=== PATIENT | female | born 1970 | race Caucasian/White ===

== ENCOUNTER 2016-10-31 22:26 | Emergency (ER) | payer OTHER ==
--- NOTE | ~2016-10-31 | ER ---
PATIENT'S NAME: ANIKET KENNEY [facility] AGE: 45 Y [address] ROOM: [place] [id number] LOCATION: [facility] ADMIT DATE: 10/31/2016 ER/Outpatient Report DISCHARGE DATE: 10/31/2016 FAMILY PHYSICIAN: James Nelson MD ATTENDING PHYSICIAN: Christoph Miller Time of Arrival: 2229 hours. Time of Evaluation: 2238 hours. CHIEF COMPLAINT: Headache. HISTORY OF PRESENT ILLNESS: The patient states she has not felt well today, has had nausea, no vomiting until this evening, but with an upset stomach, she did not take any of her normal medications that she takes for her migraine headaches and is here now for treatment. She states headache became to the status of being a migraine approximately 2 hours ago. She does have photophobia. It is similar to headaches that she has had in the past. The left eye area is where she has the pain. ALLERGIES: SULFA AND PENICILLIN. CURRENT MEDICATIONS: On the chart and reviewed by me. PAST MEDICAL HISTORY: Migraine headaches and hypertension. PAST SURGERIES: Leg repair and carpal tunnel. SOCIAL HISTORY: Denies use of tobacco, drugs, or alcohol. REVIEW OF SYSTEMS: All negative other than those mentioned in the HPI. PHYSICAL EXAMINATION: VITAL SIGNS: She weighed 75 kg, blood pressure is 150/82, pulse is 72, respirations 18, temperature of 96.6, and O2 saturation is 96% on room air. GENERAL: She is awake, alert, and oriented x4. SKIN: [place], warm, and dry. RESPIRATIONS: Even and nonlabored. PATIENT'S NAME: ANIKET KENNEY [facility] AGE: 45 Y [address] ROOM: [place], [place] [address] LOCATION: [facility] ADMIT DATE: 10/31/2016 ER/Outpatient Report DISCHARGE DATE: 10/31/2016 FAMILY PHYSICIAN: James Nelson MD ATTENDING PHYSICIAN: Christoph Miller HEENT: Pupils are equal reactive to light. Extraocular movement is intact. LUNGS: Lung sounds are clear throughout. HEART: Regular rate and rhythm. NEURO: She walked in with a steady even gait. Cranial nerves II through XII are grossly intact. EMERGENCY DEPARTMENT COURSE: Toradol 60 mg IM and Phenergan 50 mg IM were given. IMPRESSION: Headache. PLAN: Home. Rest. Fluids. Continue current medications. Follow up with her primary provider in 2-3 days if symptoms persist or worsen. She verbalized understanding. VAN CASIANO APRN FOR MD BRIAN LAGOS/myra /[id number] d: 11/01/16 0243 t: 11/05/16 1216, OUTPATIENT REPORT
[~2016-10-31 22:26] MED LIST: BUSPAR5 MG PO; LOVENOX 4040 MG/0.4 SUB-Q; METOPROLOL SUCC25 MG PO; MIRALAX17 GM PO; OXYCONTIN EXTEN10 MG PO; PERCOCET 5-3251 EACH PO; PROZAC20 MG PO; TOPAMAX25 MG PO; VALIUM5 MG PO
== END 2016-10-31 22:53 | disposition disaster alternative care site (69) ==
LOC: GMED 22:26
DX: R51 Headache (principal); I10 Essential (primary) hypertension; Z88.0 Allergy status to penicillin; Z88.2 Allergy status to sulfonamides; Z79.899 Other long term (current) drug therapy